=== PATIENT | female | born 1970 | race Caucasian/White ===

== ENCOUNTER → 2016-12-12 | Outpatient (CLI) | payer OTHER ==
--- NOTE | 2016-12-16 08:43 | RADIOLOGY REPORT PS360 ---
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 also 2008 film screening mammogram INDICATION: Routine screening no hormones. No new complaints. Noncontributory family history TECHNIQUE: Standard CC and MLO images were obtained. R2 CAD reviewed. FINDINGS: Moderate Dense breast bilaterally decreases to the mammography. No discrete or definitive significant new findings No dominant mass nor suspicious calcification. Ultrasound can be of benefit to compliment & augment screening mammography in breast of this diffuse increased density. Particular if any palpable areas arise RIGHT BREAST: No significant appearing new findings. LEFT BREAST: No significant new features. IMPRESSION: Overall stable mammogram with No new areas of concern Moderately Dense breast bilaterally decreased sensitivity mammography. Follow-up in one year recommended. Self breast examination encouraged BI-RADS CATEGORY: 2_Benign RECOMMENDED FOLLOWUP: 12M 12 MONTH FOLLOW-UP (A letter has been sent to the patient regarding results of the study.) .
== END ==
LOC: RAD 09:00
DX: Z12.31 Encounter for screening mammogram for malignant neoplasm of breast (principal)
CPT/HCPCS: G0202